=== PATIENT | female | born 2000 | race Hispanic/Latino ===

== ENCOUNTER 2023-12-02 09:58 | Inpatient (IN) | payer SELFPAY ==
[2023-12-02] MEDS ORDERED: ONDANSETRON 4 MG/2 ML VIAL ONE (10:25)
[2023-12-02] MEDS ORDERED: NA CHLORIDE 0.9% 1,000 ML ONE ×2 (10:26→13:27)
[2023-12-02 11:04] LABS: Specific Gravity 1.019 (1.005-1.030)
[2023-12-02 11:09] LABS: Specific Gravity 1.019 (1.005-1.030); Urine Bacteria <20 /HPF (<20); Urine Bilirubin 1+ (Negative); Urine Blood 1+ (Negative); Urine Clarity Extremely Turbid (Clear); Urine Color Dark-Yellow (Yellow); Urine Culture Reflex Order NOT NEEDED; Urine Glucose NEGATIVE (Negative); Urine Ketones NEGATIVE (Negative); Urine Microscopic Reflex YN ORDER UMIC; Urine Mucus Slight /HPF (None Seen); Urine Nitrite NEGATIVE (Negative); Urine Protein 1+ (Negative); Urine Urobilinogen 2+ (Normal); Urine WBC <5 /HPF (<5); Urine pH 6.5 (5.0-7.0)
[2023-12-02 11:46] LABS: Absolute Basophils 0.2 K/uL (0-0.5); Absolute Lymphocytes (CBC) 2.2 K/uL (0.7-4.9); Absolute Monocytes 0.3 K/uL (0.1-1.3); Absolute Neutrophil 8.2 K/uL (1.8-8.0); Basophils % 1.5 % (0-1.3); Hematocrit 36.9 % (36.0-45.0); Hemoglobin 12.5 g/dL (12.0-15.0); Lymphocytes % 20.3 % (15.3-44.8); MCH 29.1 pg (27.0-35.0); MCHC 33.9 g/dL (32.0-36.0); MCV 85.9 fL (80-100); MPV 10.9 fL (7.6-11.3); Monocytes % 2.8 % (3.3-12.3); Neutrophils % 75.4 % (41.7-73.7); Nucleated RBC Absolute Count 0.1 (0-0); Nucleated Red Blood Cells % 0.5 % (0-0); Platelets 105 thou/uL (152-406); Red Cell Distribution Width 14.2 % (12.1-15.2)
[2023-12-02 12:07] LABS: Albumin 2.9 g/dL (3.4-5.0); Albumin/Globulin Ratio 0.8 (1.1-1.8); Anion Gap 11.5 mEq/L (5.0-15.0); Bilirubin Total 4.5 mg/dL (0.2-1.0); Globulin 3.5 g/dL (2.3-3.5); Protein, Total 6.4 g/dL (6.4-8.2)
[2023-12-02 12:10] LABS: Potassium 3.5 mEq/L (3.5-5.1)
--- NOTE | 2023-12-02 12:10 | RAD REPORT ---
Abdomen Exam Limited: 12/02/2023 11:48 AM CLINICAL HISTORY: fever, vomiting STUDY: Limited right upper quadrant ultrasound of abdomen. COMPARISON: Same day CT FINDINGS: Liver: No significant abnormality. Bile ducts: No intrahepatic or extrahepatic biliary dilatation. Common bile duct measures 3 mm. Gallbladder: Diffuse gallbladder wall thickening. The gallbladder is underdistended, however. No ston es identified. IMPRESSION: The gallbladder is underdistended, the wall does appear thickened. Negative for cholelithiasis or pravin iary ductal dilatation. Wall thickening is probably related to either a contracted gallbladder or possibly underlying liver disease rather than acute cholecystitis.
--- NOTE | 2023-12-02 12:13 | RAD REPORT ---
EXAMINATION: CT ABDOMEN AND PELVIS WITH CONTRAST CLINICAL INDICATION: Abdominal pain TECHNIQUE: CT abdomen and pelvis was performed, after the administration of 100 cc Isovue-300.. Sagit natasha and coronal reconstructions were obtained. One or more of the following dose reduction techniques were used: Automated exposure control, adjustment of the mA and/or kV according to patien t size, and/or iterative reconstruction. Unless otherwise specified, incidental findings do not require dedicated imaging follow-up. [id number]. Oral contrast was not given which limits evaluation of b owel and appendix. COMPARISON: none FINDINGS: Mild left lower lobe opacities. The gallbladder is contracted. The spleen is upper limits normal size. The left lobe of liver is prominent. ,pancreas, and adrenals appear unremarkable. Several low-density areas are present within each kidney extending towards the periphery. No hydronep hrosis. This likely indicates pyelonephritis There is no evidence of diverticulitis 2.8 cm right ovarian cyst is benign. No follow-up imaging recommended. Small amount of free fluid. Normal appendix : IMPRESSION: Moderate bilateral pyelonephritis Mild left lower lobe opacities probably pneumonia
[2023-12-02 12:36] LABS: Atypical Lymphocytes 10 %; Band Neutrophils 6 % (0-1); Differential Total Cells Count 100; Lymphocytes 10 % (15-42); Monocytes 2 % (0-10); Segmented Neutrophils 68 % (40-80)
[2023-12-02 12:37] LABS: Blood Morphology Comment NOT SEEN (NOT SEEN); Platelet Estimate DECR; Reactive Lymphocytes 4 %; Smudge Cells PRESENT
--- NOTE | 2023-12-02 12:54 | ER ---
Nurse's Notes [facility] Name: Chong Heredia Age: 20 yrs Sex: Female : 11/19/2003 Arrival Date: 12/02/2023 Time: 09:58 Bed 17 Private MD: Diagnosis: Pyelonephritis acute Presentation: 12/01 10:09 Chief complaint: Patient states: body aches, chill since last Wednesday. Coronavirus iw screen: Client presents with at least one sign or symptom that may indicate coronavirus-19. 10:09 Method Of Arrival: EMS: [facility] iw 10:10 Ebola Screen: No symptoms or risks identified at this time. Initial Sepsis Screen: Does iw the patient meet any 2 criteria? No. Patient's initial sepsis screen is negative. Does the patient have a suspected source of infection? No. Patient's initial sepsis screen is negative. Risk Assessment: Do you want to hurt yourself or someone else? Patient reports no desire to harm self or others. Onset of symptoms was November 30, 2023. 10:10 Acuity: [facility] 3 iw Triage Assessment: 10:10 General: Appears in no apparent distress. ill, obese, Behavior is cooperative, bp appropriate for age, anxious. Pain: Complains of pain in abdomen. EENT: No deficits noted. Neuro: No deficits noted. Cardiovascular: Rhythm is sinus tachycardia. Respiratory: No deficits noted. GI: Reports nausea. : No signs and/or symptoms were reported regarding the genitourinary system. Derm: No deficits noted. Musculoskeletal: No deficits noted. 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 - Infectious Disease History:: Denies. - Social history:: Smoking status: Patient denies any tobacco usage or history of. - Family history:: not pertinent. - Hospitalizations: : No recent hospitalization is reported. Screenin:10 [facility] ED Fall Risk Assessment (Adult) History of falling in the last 3 months, bp including since admission No falls in past 3 months (0 pts) Confusion or Disorientation No (0 pts) Intoxicated or Sedated No (0 pts) Impaired Gait No (0 pts) Mobility Assist Device Used No (0 pt) Altered Elimination No (0 pt) Score/Fall Risk Level 0 - 2 = Low Risk. Abuse screen: Denies threats or abuse. Denies injuries from another. Nutritional screening: No deficits noted. Tuberculosis screening: No symptoms or risk factors identified. Assessment: 10:10 General: Appears uncomfortable, ill, Behavior is cooperative, appropriate for age, bp anxious. Pain: Complains of pain in abdomen. 12:00 Reassessment: No changes from previously documented assessment. Patient is alert, bp oriented x 3, equal unlabored respirations, skin warm/dry/pink. 14:00 Reassessment: No changes from previously documented assessment. Patient is alert, bp oriented x 3, equal unlabored respirations, skin warm/dry/pink. Vital Signs: 10:10 BP 118 / 65; Pulse 124; Resp 16; Temp 98.7; Pulse Ox 100% on R/A; Weight 77.56 kg; iw Height 5 ft. 5 in. ; Pain 10/10; 12:00 BP 102 / 62; Pulse 117; Resp 20; Pulse Ox 94% ; bp 14:00 BP 112 / 72; Pulse 116; Resp 16; Pulse Ox 91% ; bp 10:10 Body Mass Index 28.46 (77.56 kg, 165.1 cm) - Percentile 90.5 % iw 10:10 Pain Scale: Adult iw ED Course: 09:59 Patient arrived in ED. rn 09:59 Hesham Valdez MD is Attending Physician. rn 10:10 Patient has correct armband on for positive identification. bp 10:11 Triage completed. iw 10:12 Arm band placed on. iw 10:21 Scott De Santiago, RN is Primary Nurse. bp 10:43 Initial lab(s) drawn, by sc, sent to lab. Urine collected: clean catch specimen, geovani bp colored. Inserted saline lock: 20 gauge in left antecubital area, using aseptic technique. Blood collected. Flushed with 10 mL NS. 11:39 CT Abd/Pelvis - IV Contrast Only In Process Unspecified. EDMS 11:51 US Abdomen Limited In Process Unspecified. EDMS 12:53 Brian Valdez MD is Hospitalizing Provider. rn 12:54 First set of blood cultures drawn by me, Second set of blood cultures drawn by me. bp Administered Medications: 10:41 Drug: Ondansetron IVP 4 mg IVP once; over 2 minutes Route: IVP; Site: left antecubital; bp 14:56 Follow up: Response: No adverse reaction bp 10:41 Drug: NS 0.9% IV 1000 ml IV at 1000 ml once Route: IV; Rate: 1000 ml; Site: left bp antecubital; 14:56 Follow up: IV Status: Completed infusion; IV Intake: 1000ml bp 13:00 Drug: NS 0.9% IV 1000 ml IV at 1000 ml once Route: IV; Rate: 1000 ml; Site: right hand; bp 14:55 Follow up: IV Status: Completed infusion; IV Intake: 1000ml bp 13:30 Drug: Rocephin IV 1 grams IV at calculated rate once; Given slow IV push per pharmacy bp instructions Route: IV; Rate: calculated rate; Site: right hand; 14:55 Follow up: IV Status: Completed infusion; IV Intake: 100ml bp Intake: 14:55 IV: 1000ml; Total: 1000ml. bp 14:55 IV: 100ml; Total: 1100ml. bp 14:56 IV: 1000ml; Total: 2100ml. bp Outcome: 12:54 Decision to Hospitalize by Provider. rn 15:40 Patient left the ED. bc6 Signatures: Dispatcher [employer] EDTerri Cosme, RN Hesham Siddiqui MD MD rn Peltier, Brian, RN RN bp Carowatson, Breana bc6 Corrections: (The following items were deleted from the chart) 10:12 10:10 Resp 16bpm; Temp 98.7F; marina gray
--- NOTE | 2023-12-02 12:55 | EDPHYS ---
Physician Documentation [facility] Name: Chong Heredia Age: 20 yrs Sex: Female : 11/19/2003 Arrival Date: 12/02/2023 Time: 09:58 Bed 17 Private MD: ED Physician Hesham Valdez HPI: 12/01 10:08 This 20 yrs old Female presents to ER via Unassigned with complaints of rn vomiting. 10:08 The patient presents to the emergency department with nausea, vomiting. Onset: The rn symptoms/episode began/occurred 1 week(s) ago. Possible causes: unknown. The symptoms are aggravated by nothing. The symptoms are alleviated by nothing. Associated signs and symptoms: Pertinent positives: fever, nausea, vomiting, Pertinent negatives: diarrhea, GI bleeding. Severity of symptoms: At their worst the symptoms were moderate in the emergency department the symptoms are unchanged. The patient has not experienced similar symptoms in the past. The patient has been recently seen by a physician:. Patient reports 1 week of nausea and vomiting, generalized weakness. Seen by PCP 2 times this week, was negative for COVID, flu is pending. Treated as flu with Tamiflu and Zofran as well as given MiraLAX. Patient denies focal abdominal pain. No blood in emesis or stool.. 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 - Infectious Disease History:: Denies. - Social history:: Smoking status: Patient denies any tobacco usage or history of. - Family history:: not pertinent. - Hospitalizations: : No recent hospitalization is reported. ROS: 10:08 Constitutional: Negative for fever, chills, and weight loss, ENT: Negative for injury, rn pain, and discharge, Neck: Negative for injury, pain, and swelling, Cardiovascular: Negative for chest pain, palpitations, and edema, Respiratory: Negative for shortness of breath, cough, wheezing, and pleuritic chest pain, Abdomen/GI: Negative for abdominal pain, positive for nausea and vomiting Back: Negative for injury and pain, : Positive for dark urine MS/Extremity: Negative for injury and deformity, Skin: Negative for injury, rash, and discoloration, Neuro: Positive for headache and generalized weakness Exam: 10:08 Constitutional: This is a well developed, well nourished patient who is awake, alert, rn and in no acute distress. Pushed to triage in a wheelchair Head/Face: Normocephalic, atraumatic. ENT: Dry mucous membranes Cardiovascular: Tachycardic, regular Respiratory: No increased work of breathing, no retractions or nasal flaring. Abdomen/GI: Soft, no focal tenderness or guarding. No peritoneal signs. No distention MS/ Extremity: Pulses equal, no cyanosis. Neuro: Awake and alert, GCS 15 Vital Signs: 10:10 BP 118 / 65; Pulse 124; Resp 16; Temp 98.7; Pulse Ox 100% on R/A; Weight 77.56 kg; iw Height 5 ft. 5 in. ; Pain 10/10; 12:00 BP 102 / 62; Pulse 117; Resp 20; Pulse Ox 94% ; bp 14:00 BP 112 / 72; Pulse 116; Resp 16; Pulse Ox 91% ; bp 10:10 Body Mass Index 28.46 (77.56 kg, 165.1 cm) - Percentile 90.5 % iw 10:10 Pain Scale: Adult iw MDM: 09:59 Patient medically screened. rn 12:53 Differential diagnosis: gastritis, pancreatitis, appendicitis, diverticulitis, viral rn gastroenteritis, gastroenteritis, Pyelonephritis. Data reviewed: vital signs, nurses notes, lab test result(s), radiologic studies, CT scan, ultrasound, and as a result, I will admit patient. Consideration of Admission/Observation Patient was admitted/placed on observation. Escalation of care including admission/observation considered. Counseling: I had a detailed discussion with the patient and/or guardian regarding the historical points, exam findings, and any diagnostic results supporting the discharge/admit diagnosis, lab results, radiology results, the need for further work-up and treatment in the hospital. 12/01 10: Order name: CBC with Diff; Complete Time: 13:09 iw 12/01 10:06 Order name: CMP; Complete Time: 12:22 iw 12/01 10: Order name: Lipase; Complete Time: 12:22 iw 12/01 10:06 Order name: Test, Urine; Complete Time: 11:11 iw 12/01 10:06 Order name: Urinalysis w/ reflexes; Complete Time: 11:11 iw 12/01 10:06 Order name: Flu; Complete Time: 11:38 iw 12/01 12:23 Order name: Blood Culture Adult (2) rn 12/01 12:23 Order name: Lactate w/ 2H reflex if indic.; Complete Time: 13:34 rn 12/01 12:23 Order name: Protime (+inr); Complete Time: 13:23 rn 12/01 12:23 Order name: Ptt, Activated; Complete Time: 13:23 12/01 12:37 Order name: Manual Differential; Complete Time: 13:09 EDMS 12/01 13:22 Order name: Tylenol Level; Complete Time: 13:52 la1 12/01 13:33 Order name: Bilirubin Direct EDMS 12/01 15:33 Order name: Ghost Lactate-NO COLLECT Timer EDAR 12/01 10:06 Order name: CT Abd/Pelvis - IV Contrast Only; Complete Time: 12:22 12/01 11:11 Order name: US Abdomen Limited; Complete Time: 12:22 12/01 12:23 Order name: EKG; Complete Time: 12:24 12/01 10:06 Order name: IV Saline Lock; Complete Time: 10:41 12/01 10:06 Order name: Labs collected and sent; Complete Time: 10:41 12/01 11:10 Order name: Labs - recollect needed: lavender; Complete Time: 11:37 bc6 12/01 11:12 Order name: Labs - recollect needed: green; Complete Time: 11:37 bc6 12/01 12:23 Order name: Accucheck; Complete Time: 12:52 12/01 12:23 Order name: Cardiac monitoring; Complete Time: 12:52 rn 12/01 12:23 Order name: EKG - Nurse/Tech; Complete Time: 12:52 rn 12/01 12:23 Order name: IV Saline Lock - Large Bore; Complete Time: 12:52 rn 12/01 12:23 Order name: O2 Per Protocol; Complete Time: 12:52 rn 12/01 12:23 Order name: O2 Sat Monitoring; Complete Time: 12:52 rn 12/01 12:23 Order name: Vital Signs; Complete Time: 12:52 rn Administered Medications: 10:41 Drug: Ondansetron IVP 4 mg IVP once; over 2 minutes Route: IVP; Site: left antecubital; bp 14:56 Follow up: Response: No adverse reaction bp 10:41 Drug: NS 0.9% IV 1000 ml IV at 1000 ml once Route: IV; Rate: 1000 ml; Site: left bp antecubital; 14:56 Follow up: IV Status: Completed infusion; IV Intake: 1000ml bp 13:00 Drug: NS 0.9% IV 1000 ml IV at 1000 ml once Route: IV; Rate: 1000 ml; Site: right hand; bp 14:55 Follow up: IV Status: Completed infusion; IV Intake: 1000ml bp 13:30 Drug: Rocephin IV 1 grams IV at calculated rate once; Given slow IV push per pharmacy bp instructions Route: IV; Rate: calculated rate; Site: right hand; 14:55 Follow up: IV Status: Completed infusion; IV Intake: 100ml bp Disposition Summary: 12/02/23 12:54 Hospitalization Ordered Notes: Hospitalization Status: Inpatient Admission rn Provider: Brian Valdez rn Location: Telemetry/MedSurg (Inpatient) rn Condition: Stable rn Problem: new rn Symptoms: have improved rn Bed/Room Type: Standard rn Room Assignment: 225(12/02/23 14:51) bc6 Diagnosis - Pyelonephritis acute rn Forms: - Medication Reconciliation Form rn - SBAR form rn - Leadership Thank You Letter rn Signatures: Dispatcher [employer] EDTerri Cosme RN RN Hesham Valdez MD MD rn Attema, Lee, DIRECTOR GLOBAL STRATEGIC PUBLISHER SALES-C DIRECTOR GLOBAL STRATEGIC PUBLISHER SALES-Cla1 Scott De Santiago RN RN Jimena Ruiz bc6 Corrections: (The following items were deleted from the chart) 12:38 11:53 CBC Smear Scan ordered. EDAR EDMS 14:51 12:54 rn bc6
[2023-12-02 13:13] LABS: PT Prothrombin Time 11.9 SECONDS (9.4-12.5); PTT, Activated Partial Thromb 35.4 SECONDS (24.3-36.9); Protime INR 1.06
[2023-12-02] MEDS ORDERED: CEFTRIAXONE 1000 MG/VIAL ONE (13:27)
[2023-12-02] MEDS: NA CHLORIDE 0.9% 1,000 ML IV SCH ×2 (15:54→16:25)
[2023-12-02 16:17] VITALS: BMI 28.4
--- NOTE | 2023-12-02 16:18 | P.HP ---
Certification for Inpatient Patient admitted to: Inpatient With expected LOS: >2 Midnights Patient will require the following post-hospital care: None Practitioner: I am a practitioner with admitting privileges, knowledge of patient current condition, hospital course, and medical plan of care. Services: Services provided to patient in accordance with Admission requirements found in Title 42 Section 412.3 of the Code of Federal Regulations Patient History Date of Service: 12/02/23 Reason for admission: Pyelonephritis History of Present Illness: 23-year-old female presents to the ER fever, chills, malaise. She reports she began having symptoms on the evening of 11/21 and admit having daily fever and chills since then. Does report some nausea and vomiting as well. She was evaluated in the emergency department her labs were significant for white blood cell count of 10.8 sodium 135 T. bili 4.5 AST 224 ALT 227 alk phos [address] of the abdomen pelvis was performed with IV contrast which showed several low-density areas present within each kidney extending towards the periphery likely indicating pyelonephritis. Given her elevated LFTs and abdominal ultrasound was also performed which showed gallbladder is under distended, wall does not appear thickened. Negative for cholelithiasis or biliary ductal dilatation. Further discussion as determined that patient was taking between 6 and 8 g of Tylenol daily for the last 9 days. Patient will be admitted for severe sepsis, pyelonephritis, acute liver injury suspected accidental Tylenol overdose. Allergies No Known Allergies Allergy (Verified 12/02/23 15:53) Home Medications: NK [No Home Meds] 12/02/23 - Past Medical/Surgical History Has patient received pneumonia vaccine in the past: No Diabetic: No -: None -: None Psychosocial/ Personal History: And insurance, lives at home with family - Social History Smoking Status: Never smoker Alcohol use: No CD- Drugs: No Caffeine use: No Place of Residence: Home Review of Systems 10-point ROS is otherwise unremarkable General: Fever, Chills, Weakness, Malaise Physical Examination - Physical Exam General: Alert, In no apparent distress, Oriented x3 HEENT: Atraumatic, PERRLA, Mucous membr. moist/pink Neck: Supple, 2+ carotid pulse no bruit, No LAD Respiratory: Clear to auscultation bilaterally, Normal air movement Cardiovascular: Regular rate/rhythm, Normal S1 S2 Gastrointestinal: Normal bowel sounds, No tenderness Musculoskeletal: No tenderness Integumentary: No rashes Neurological: Normal speech, Normal strength at 5/5 x4 extr, Normal tone, Normal affect - Studies Laboratory Data (last 24 hrs) 12/02/23 12/02/23 12/02/23 12:55 11:35 11:35 WBC 10.80 Hgb 12.5 Hct 36.9 Plt Count 105 L PT 11.9 INR 1.06 APTT 35.4 Sodium 135 L Potassium 3.5 BUN 10 Creatinine 0.77 Glucose 104 Total Bilirubin 4.5 H AST 224 H ALT 227 H Alkaline Phosphatase 284 H Lipase 29 Microbiology Data (last 24 hrs): 12/02/23 10:45 Nasopharnyx Influenza Type A Antigen Screen - Final 12/02/23 10:45 Nasopharnyx Influenza Type B Antigen Screen - Final Assessment and Plan - Plan Assessment: Severe sepsis secondary to pyelonephritis Acute liver injury likely secondary to accidental Tylenol overdose Plan: Severe sepsis secondary to pyelonephritis Blood and urine cultures obtained-follow Continue IV fluids Continue antibiotics/Rocephin monitor CBC, fever trend Acute liver injury likely secondary to accidental Tylenol overdose Discussed case with poison control who recommended giving acetylcysteine acetylcysteine to start this evening DVT PPX: Lovenox Code status:full Discharge Plan: Home Plan to discharge in: Greater than 2 days - Advance Directives Does patient have a Living Will: No Does patient have a Durable POA for Healthcare: No - Code Status/Comfort Care Code Status Assessed: Yes (Full code) Critical Care: No Time Spent Managing Pts Care (In Minutes): 64
[2023-12-02] MEDS: IBUPROFEN 400 MG TAB PO PRN (16:25)
[2023-12-02] MEDS: ACETYLCYSTEINE IV ONE ×3 (17:09→21:24)
[2023-12-02] MEDS: D5W IV ONE ×2 (17:09→21:24)
[2023-12-02] MEDS: MORPHINE 2 MG/ML SYR IV PRN (18:15)
[2023-12-02] MEDS: DEXTROSE 5% IV ONE (18:16)
[2023-12-02] MEDS: WATER IV ONE (18:16)
[2023-12-02 19:32] LABS: Hepatitis B Core IgM Nonreactive (Nonreactive); Hepatitis B surface AG Interp. Nonreactive (Nonreactive); Hepatitis C Virus Ab Nonreactive (Nonreactive)
[2023-12-02 19:33] LABS: HBsAG Nonreactive Report Report
[2023-12-02] MEDS: ONDANSETRON 4 MG/2 ML VIAL IV PRN (21:12)
[2023-12-02] MEDS: TRAMADOL HCL 50 MG TAB PO PRN (21:13)
[2023-12-03] MEDS: CEFTRIAXONE 1,000 MG in NA CHLORIDE 0.9% 50 ML IVPB SCH (08:37)
[2023-12-03] MEDS: ENOXAPARIN 40 MG/0.4 ML SQ SCH (08:38)
[2023-12-03] MEDS: NA CHLORIDE 0.9% 1,000 ML IV SCH (12:05)
--- NOTE | 2023-12-03 12:23 | RAD REPORT ---
EXAMINATION: ONE VIEW CHEST XR CLINICAL INDICATION: Dyspnea, hypoxia TECHNIQUE: Frontal chest projection is submitted. Examination is limited by patient positioning and t echnique. COMPARISON: No prior exam. FINDINGS: Moderate bilateral pulmonary opacities are seen probably representing infection/pneumonia. Pulmonary edema would be another possibility. The heart is upper limit of normal in size. No displaced fractures identified. IMPRESSION: Moderate bilateral pulmonary opacities are seen which may represent pneumonia or pulmonary edema.
--- NOTE | 2023-12-03 13:31 | P.PN ---
Date of Service: 12/03/23 Subjective: Feeling a little better this morning Still having headache but less fever/chills Denies any abdominal pain ROS: 10 point ROS as noted above, otherwise negative Physical exam GEN: Alert, oriented, NAD HEENT: Normal conjunctiva, sclera anicteric CV: Regular rate and rhythm, no edema Pulm: Nonlabored respirations on room air ABD: Soft, nontender, nondistended, no CVA tenderness MSK: No joint tenderness Integumentary: No rashes Neuro: Normal speech, normal affect Vitals reviewed Assessment: Severe sepsis secondary to pyelonephritis Acute liver injury likely secondary to accidental Tylenol overdose Acute hypoxic respiratory failure secondary to pulmonary edema Plan: Severe sepsis secondary to pyelonephritis Blood and urine cultures obtained-follow Lactate improved, patient developed pulmonary edema after fluid resuscitation/acetylcysteine Fluids discontinued Continue antibiotics/Rocephin monitor CBC, fever trend Await urine culture Acute liver injury likely secondary to accidental Tylenol overdose Given acetylcysteine Repeat labs pending Acute hypoxic respiratory failure secondary to pulmonary edema Continue nasal cannula oxygen, IV fluid discontinued, will give dose of IV Lasix DVT PPX: Lovenox Code status:full Discharge Plan: Home Plan to discharge in: Greater than 2 days Time Spent Managing Pts Care (In Minutes): 35
[2023-12-03] MEDS: FUROSEMIDE 40 MG/4 ML VIAL IV ONE (13:52)
--- NOTE | 2023-12-03 14:09 | EKG ---
Test Date: 2023-12-02 Test Time: 12:34:10 Search Specialist: ALEYDA MEASUREMENT RESULTS: Intervals: Rate: 118 VT: 138 QRSD: 88 QT: 314 QTc: 440 Windfall: P: 64 VT: 138 QRS: 68 T: 17 INTERPRETIVE STATEMENTS: Sinus tachycardia Cannot rule out Anterior infarct, age undetermined Abnormal ECG No previous ECG available for comparison Electronically Signed On 12-03-23 14:07:09 CDT by Rolando Oliveira
[2023-12-03 17:46] LABS: PT Prothrombin Time 12.3 SECONDS (9.4-12.5); PTT, Activated Partial Thromb 36.2 SECONDS (24.3-36.9); Protime INR 1.1
[2023-12-03 17:53] LABS: Albumin 2.4 g/dL (3.4-5.0); Albumin/Globulin Ratio 0.8 (1.1-1.8); Anion Gap 8.7 mEq/L (5.0-15.0); Bilirubin Direct 1.5 mg/dL (0-0.2); Bilirubin Total 1.8 mg/dL (0.2-1.0); Globulin 3.1 g/dL (2.3-3.5); Potassium 2.7 mEq/L (3.5-5.1); Protein, Total 5.5 g/dL (6.4-8.2)
[2023-12-03 18:01] LABS: Absolute Basophils 0.4 K/uL (0-0.5); Absolute Monocytes 0.7 K/uL (0.1-1.3); Absolute Neutrophil 5.4 K/uL (1.8-8.0); Basophils % 3.8 % (0-1.3); Hematocrit 30.3 % (36.0-45.0); Hemoglobin 10.6 g/dL (12.0-15.0); Lymphocytes % 31.7 % (15.3-44.8); MCH 29.7 pg (27.0-35.0); MCHC 35.1 g/dL (32.0-36.0); MCV 84.5 fL (80-100); MPV 10.4 fL (7.6-11.3); Neutrophils % 57.5 % (41.7-73.7); Platelets 113 thou/uL (152-406); RBC Red Blood Cell Count 3.58 M/uL (3.86-4.86)
[2023-12-04 07:00] LABS: Absolute Lymphocytes (CBC) 2.9 K/uL (0.7-4.9); Absolute Monocytes 0.8 K/uL (0.1-1.3); Absolute Neutrophil 5.4 K/uL (1.8-8.0); Basophils % 0.3 % (0-1.3); Eosinophils % 0.1 % (0-4.4); Hematocrit 29.7 % (36.0-45.0); Hemoglobin 10.1 g/dL (12.0-15.0); Lymphocytes % 31.5 % (15.3-44.8); MCH 29.3 pg (27.0-35.0); MCHC 34.2 g/dL (32.0-36.0); MCV 85.8 fL (80-100); MPV 9.8 fL (7.6-11.3); Neutrophils % 59.1 % (41.7-73.7); Platelets 124 thou/uL (152-406); RBC Red Blood Cell Count 3.46 M/uL (3.86-4.86); Red Cell Distribution Width 13.8 % (12.1-15.2)
[2023-12-04 07:18] LABS: Albumin 2.4 g/dL (3.4-5.0); Albumin/Globulin Ratio 0.8 (1.1-1.8); Anion Gap 5.8 mEq/L (5.0-15.0); Bilirubin Direct 1.1 mg/dL (0-0.2); Bilirubin Total 1.4 mg/dL (0.2-1.0); Potassium 2.8 mEq/L (3.5-5.1); Protein, Total 5.4 g/dL (6.4-8.2)
[2023-12-04 07:55] LABS: Magnesium 2.2 mg/dL (1.6-2.4)
[2023-12-04] MEDS: KCL 20 MEQ/100 mL IVPB 20 MEQ/100 ML BAG IV SCH (08:36)
--- NOTE | 2023-12-04 13:21 | P.PN ---
Date of Service: 12/04/23 Subjective: Feeling a little better this morning Still having headache but less fever/chills Denies any abdominal pain ROS: 10 point ROS as noted above, otherwise negative Physical exam GEN: Alert, oriented, NAD HEENT: Normal conjunctiva, sclera anicteric CV: Regular rate and rhythm, no edema Pulm: Nonlabored respirations on room air ABD: Soft, nontender, nondistended, no CVA tenderness MSK: No joint tenderness Integumentary: No rashes Neuro: Normal speech, normal affect Vitals reviewed Assessment: Severe sepsis secondary to pyelonephritis Acute liver injury likely secondary to accidental Tylenol overdose Acute hypoxic respiratory failure secondary to pulmonary edema Plan: Severe sepsis secondary to pyelonephritis Blood and urine cultures obtained-No growth thus far Lactate improved, patient developed pulmonary edema after fluid resuscitation/acetylcysteine Fluids discontinued 12/02 Continue antibiotics/Rocephin monitor CBC, fever trend urine culture-no growth Acute liver injury likely secondary to accidental Tylenol overdose Given acetylcysteine Liver labs improving Monitor daily Acute hypoxic respiratory failure secondary to pulmonary edema Continue nasal cannula oxygen, IV fluid discontinued, will give dose of IV Lasix Improving, on nansal cannula DVT PPX: Lovenox Code status:full Discharge Plan: Home Plan to discharge in: Greater than 2 days Time Spent Managing Pts Care (In Minutes): 35
[2023-12-04 13:31] LABS: SARS-CoV-2 Antigen CONTROL BLUE LINE VIS/BG OK; SARS-CoV-2 Antigen Rapid Res Negative (Negative)
[2023-12-04] MEDS: POTASSIUM CL SA 10 MEQ TAB PO ONE (17:45)
[2023-12-04 18:42] LABS: C-Reactive Protein 59.6 mg/L (<3.00)
[2023-12-04 19:14] LABS: Rheumatoid Factor NEG (NEG)
[2023-12-04 20:58] VITALS: O2SAT 98
[2023-12-05 05:11] LABS: Absolute Lymphocytes (CBC) 3.7 K/uL (0.7-4.9); Absolute Monocytes 1.1 K/uL (0.1-1.3); Basophils % 0.3 % (0-1.3); Eosinophils % 0.3 % (0-4.4); Hematocrit 29.4 % (36.0-45.0); Lymphocytes % 41.7 % (15.3-44.8); MCH 29.2 pg (27.0-35.0); MCV 85.9 fL (80-100); MPV 10.2 fL (7.6-11.3); Monocytes % 12.4 % (3.3-12.3); Neutrophils % 45.3 % (41.7-73.7); Platelets 179 thou/uL (152-406); RBC Red Blood Cell Count 3.43 M/uL (3.86-4.86); Red Cell Distribution Width 14.1 % (12.1-15.2)
[2023-12-05 05:21] LABS: Albumin 2.6 g/dL (3.4-5.0); Albumin/Globulin Ratio 0.8 (1.1-1.8); Anion Gap 6.5 mEq/L (5.0-15.0); Bilirubin Direct 0.7 mg/dL (0-0.2); Globulin 3.1 g/dL (2.3-3.5); Magnesium 2.2 mg/dL (1.6-2.4); Potassium 3.5 mEq/L (3.5-5.1); Protein, Total 5.7 g/dL (6.4-8.2)
[2023-12-05 05:35] LABS: Blood Morphology Comment NOT SEEN (NOT SEEN); Platelet Estimate ADEQ; White Blood Cell Scan OK (OK)
[2023-12-05] MEDS: POTASSIUM CL SA 10 MEQ TAB PO ONE (08:15)
[2023-12-05 14:30] VITALS: BP 121/67; TEMP 99.1
--- NOTE | 2023-12-05 14:47 | P.DS ---
Admission Date: 12/02/23 Discharge Date: 12/05/23 Disposition: ROUTINE DISCHARGE Discharge Condition: GOOD Reason for Admission: Pyelonephritis Brief History of Present Illness: 23-year-old female presents to the ER fever, chills, malaise. She reports she began having symptoms on the evening of 11/21 and admit having daily fever and chills since then. Does report some nausea and vomiting as well. She was evaluated in the emergency department her labs were significant for white blood cell count of 10.8 sodium 135 T. bili 4.5 AST 224 ALT 227 alk phos [address] of the abdomen pelvis was performed with IV contrast which showed several low-density areas present within each kidney extending towards the periphery likely indicating pyelonephritis. Given her elevated LFTs and abdominal ultrasound was also performed which showed gallbladder is under distended, wall does not appear thickened. Negative for cholelithiasis or biliary ductal dilatation. Further discussion as determined that patient was taking between 6 and 8 g of Tylenol daily for the last 9 days. Patient will be admitted for severe sepsis, pyelonephritis, acute liver injury suspected accidental Tylenol overdose. Hospital Course: Patient presented to the emergency department with fever, chills and bodyaches for the past 9 days prior to hospitalization. He had recently been to an urgent care when her blood pressure was low so she was referred to the emergency department. She denies any other symptoms aside from the fever, chills and bodyaches. She was evaluated in the ER and found to have a white blood cell count of 10.8 T. bili 4.5 D bili 3.0 AST 224 and ALT [address] abdomen pelvis with IV contrast was performed which revealed several low- density areas are present within each kidney extending towards the periphery, no hydronephrosis. This likely indicates pyelonephritis. Patient denied any urinary symptoms, her culture was obtained after she had received antibiotics but showed no growth, blood cultures showed no growth. She was treated empirically with Rocephin and had improvement in fever curve, and is feeling much better. In regards to her acute liver injury it was determined that patient was taking 6 to 8 g of acetaminophen daily for about 9 days. Case was discussed with poison control recommended administering acetylcysteine. She completed the course of this insistently and her liver function has improved. At discharge her T. bili is 1.0 D bili 0.7 AST 100 ALT 127 alk phos 259. It is not clear that this is a typical case of bowel nephritis especially with a negative urine culture and lack of symptoms. She may have also had a viral illness and accidental overdose of Tylenol which contributed to her lab abnormalities. Please follow-up with your primary care doctor in 1 to 2 weeks Recommend getting a repeat CMP/complete metabolic panel lab draw in 2 weeks to check on the kidney and liver function Recommend reimaging the kidneys with either a CT of the abdomen/pelvis and renal ultrasound Prescription for antibiotics for an additional 10 days sent to your pharmacy Assessment: Severe sepsis secondary to pyelonephritis Acute liver injury likely secondary to accidental Tylenol overdose Acute hypoxic respiratory failure secondary to pulmonary edema Vital Signs/Physical Exam: Temp Pulse Resp BP Pulse Ox 99.1 F 96 H 20 121/67 92 12/05/23 12:00 12/05/23 12:00 12/05/23 12:00 12/05/23 12:00 12/05/23 12:00 General: Alert, In no apparent distress, Oriented x3 HEENT: Atraumatic, PERRLA Neck: Supple, JVD not distended Respiratory: Clear to auscultation bilaterally, Normal air movement Cardiovascular: Regular rate/rhythm, Normal S1 S2 Gastrointestinal: Normal bowel sounds, No tenderness Musculoskeletal: No tenderness Integumentary: No rashes Neurological: Normal speech, Normal tone Laboratory Data at Discharge: WBC 8.80 thou/uL (4.3-10.9) 12/05/23 04:51 Hgb 10.0 g/dL (12.0-15.0) L 12/05/23 04:51 Hct 29.4 % (36.0-45.0) L 12/05/23 04:51 Plt Count 179 thou/uL (152-406) D 12/05/23 04:51 PT 12.3 SECONDS (9.4-12.5) 12/03/23 17:20 INR 1.10 12/03/23 17:20 APTT 36.2 SECONDS (24.3-36.9) 12/03/23 17:20 Sodium 141 mEq/L (136-145) 12/05/23 04:51 Potassium 3.5 mEq/L (3.5-5.1) 12/05/23 04:51 BUN 6 mg/dL (7-18) L 12/05/23 04:51 Creatinine 0.72 mg/dL (0.55-1.02) 12/05/23 04:51 Glucose 92 mg/dL (74-106) 12/05/23 04:51 Magnesium 2.2 mg/dL (1.6-2.4) 12/05/23 04:51 Total Bilirubin 1.0 mg/dL (0.2-1.0) 12/05/23 04:51 AST 100 U/L (15-37) H 12/05/23 04:51 ALT 127 U/L (13-56) H 12/05/23 04:51 Alkaline Phosphatase 259 U/L (45-117) H 12/05/23 04:51 Lipase 29 U/L (13-75) 12/02/23 11:35 Home Medications: Cefuroxime Axetil [Cefuroxime] 500 mg PO BID 10 Days #20 tab 12/05/23 New Medications: Cefuroxime Axetil [Cefuroxime] 500 mg PO BID 10 Days #20 tab Physician Discharge Instructions: Patient presented to the emergency department with fever, chills and bodyaches for the past 9 days prior to hospitalization. He had recently been to an urgent care when her blood pressure was low so she was referred to the emergency department. She denies any other symptoms aside from the fever, chills and bodyaches. She was evaluated in the ER and found to have a white blood cell count of 10.8 T. bili 4.5 D bili 3.0 AST 224 and ALT [address] abdomen pelvis with IV contrast was performed which revealed several low- density areas are present within each kidney extending towards the periphery, no hydronephrosis. This likely indicates pyelonephritis. Patient denied any urinary symptoms, her culture was obtained after she had received antibiotics but showed no growth, blood cultures showed no growth. She was treated empirically with Rocephin and had improvement in fever curve, and is feeling much better. In regards to her acute liver injury it was determined that patient was taking 6 to 8 g of acetaminophen daily for about 9 days. Case was discussed with poison control recommended administering acetylcysteine. She completed the course of this insistently and her liver function has improved. At discharge her T. bili is 1.0 D bili 0.7 AST 100 ALT 127 alk phos 259. It is not clear that this is a typical case of bowel nephritis especially with a negative urine culture and lack of symptoms. She may have also had a viral illness and accidental overdose of Tylenol which contributed to her lab abnormalities. Please follow-up with your primary care doctor in 1 to 2 weeks Recommend getting a repeat CMP/complete metabolic panel lab draw in 2 weeks to check on the kidney and liver function Recommend reimaging the kidneys with either a CT of the abdomen/pelvis and renal ultrasound Prescription for antibiotics for an additional 10 days sent to your pharmacy Diet: Regular Activity: Ad rupert Followup: NONE,NONE [Primary Care Provider] - 1-2 Weeks Time spent managing pt's care (in minutes): 41
== END 2023-12-05 15:29 | disposition home or self-care (01) | DRG 871 ==
LOC: ER 09:58 → EDBD 13:31 → ERHOLD 13:31 → 2ND 15:00
PROVIDERS: ADMIT Hospitalist; ATTEND Hospitalist
DX: A41.9 Sepsis, unspecified organism (principal); J96.01 Acute respiratory failure with hypoxia; N10 Acute pyelonephritis; S36.119A Unspecified injury of liver, initial encounter; J81.1 Chronic pulmonary edema; R65.20 Severe sepsis without septic shock; T39.1X1A Poisoning by 4-Aminophenol derivatives, accidental (unintentional), initial encounter; Z11.52 Encounter for screening for COVID-19
CPT/HCPCS: 36415; 71045; 74177; 76705; 80053; 80074; 80143; 81001; 81025; 82248; 82550; 83605; 83690; 83735; 84132; 84145; 85025; 85610; 85730; 86038; 86140; 86200; 86430; 86664; 86665; 87040; 87086; 87088; 87804; 87811; 93005; J0132; J0696; J1650; J1940; J2270; J2405; J3480; J7030; J7060; Q9967